=== PATIENT | male | born 1975 | race Caucasian/White ===

== ENCOUNTER 2020-09-24 17:06 | Inpatient (IN) | payer OTHER ==
[~2020-09-24] VITALS: Ht 175.3 cm; Wt 69.3 kg
[2020-09-24 18:14] LABS: BASOPHILS ABSOLUTE AUTO 0.03 K/mm3 (0.00-0.23); BASOPHILS PERCENT AUTO 0 % (0-2); EOSINOPHILS ABSOLUTE AUTO 0.02 K/mm3 (0.00-0.68); EOSINOPHILS PERCENT AUTO 0 % (0-6); Hemoglobin 14.8 g/dL (13.5-17.5); IMMATURE GRAN ABSOLUTE AUTO 0.02 K/mm3 (0.00-0.10); IMMATURE GRAN PERCENT AUTO 0 % (0-1); LYMPHOCYTES ABSOLUTE AUTO 0.99 K/mm3 (0.84-5.20); LYMPHOCYTES PERCENT AUTO 10 % (21-46); MONOCYTES PERCENT AUTO 4 % (4-13); Mean Corpuscular HGB 30.1 pg (26.0-34.0); Mean Corpuscular HGB Conc 33.6 g/dL (31.5-36.5); Mean Corpuscular Volume 89 fL (80-100); Mean Platelet Volume 11.3 fL (9.1-12.4); NEUTROPHILS PERCENT AUTO 86 % (41-73); Platelet Count 126 K/mm3 (150-400); RDW Coefficient Variation 12.7 % (11.7-14.2); RDW Standard Deviation 41.6 fL (35.1-46.3); Red Blood Cell Count 4.92 M/mm3 (4.30-5.90); White Blood Cell Count 10.06 K/mm3 (4.00-11.30)
[2020-09-24] MEDS ORDERED: AMOX-CLAV 875-1 EAC3 PO (18:15)
[2020-09-24] MEDS ORDERED: INSDET100 SC ×2 (18:15)
[2020-09-24] MEDS ORDERED: FARXIGA5 MG ×2 (18:15)
[2020-09-24] MEDS ORDERED: GLUCOPHAGE1000 MG PO ×2 (18:16)
[2020-09-24] MEDS ORDERED: OMEP20ER PO ×2 (18:16)
[2020-09-24 18:38] LABS: Alanine Aminotransfer (ALT/SGP 18 U/L (12-78); Albumin/Globulin Ratio 0.9 (0.8-1.8); Alk Phos 92 U/L (50-136); Anion Gap 12 mmol/L (6-16); Aspartate Aminotrans (AST/SGOT 10 U/L (12-37); Bilirubin, Total 1.4 mg/dL (0.1-1.0); Blood Urea Nitrogen 17 mg/dL (8-24); Bun/Creatinine Ratio 24.7 (12.0-20.0); CO2, Blood 24 mmol/L (21-32); Calcium, Blood 9.6 mg/dL (8.5-10.1); Chloride, Blood 98 mmol/L (98-108); Creatinine, Blood 0.69 mg/dL (0.60-1.20); Globulin, Blood 4.6 g/dL (2.2-4.0); Glomerular Filtration Rate >60 (60-); Glucose, Blood 329 mg/dL (70-99); Potassium, Blood 4.1 mmol/L (3.5-5.5); Sodium, Blood 134 mmol/L (136-145); Total Protein, Blood 8.6 g/dL (6.4-8.2)
[2020-09-24 20:09] LABS: Influenza A, PCR Negative (NEGATIVE); Influenza B, PCR Negative (NEGATIVE); Resp Syncytial Virus, PCR Negative (NEGATIVE); SARS-Cov-2 (COVID-19) PCR, MMC Negative (NEGATIVE)
--- NOTE | 2020-09-25 03:13 | NUR ---
CALL TO HOSPITALIST DR. ARNETT. PT BP 96/59. DOWN FROM 130S SBP ON ADMISSION. PULSE 84. AFEB. RECEIVED ORDER FOR 1 L NS OVER TO BE INFUSED OVER 3 HOURS.
--- NOTE | 2020-09-25 06:44 | NUR ---
SHIFT SUMMARY: PT ADMITTED TO MEDICAL FLOOR FROM ER [facility]. T/F FROM W/C TO BED INDEPENDENTLY. NWB LLE DUE TO PAIN. PT AAOX3. BP UP TO 125/81 AFTER 1L OF NS. L FOOT WOUND W/SLOUGH TO BED, MOD AMT OF SERO SANG MALODOROUS DRAINAGE, MACERATED EDGES. ERYTHEMA TO L FOOT. RED AREA OUTLINED. CAP REFILL < 3 SEC TO B LE. PT MED X 1 FOR L FOOT PAIN. IV ABT INFUSED PER ORDER. WILL CONT TO MONITOR
[2020-09-25 10:08] LABS: Anion Gap 3 mmol/L (6-16); Blood Urea Nitrogen 18 mg/dL (8-24); Bun/Creatinine Ratio 29.6 (12.0-20.0); CO2, Blood 27 mmol/L (21-32); Calcium, Blood 8.2 mg/dL (8.5-10.1); Chloride, Blood 109 mmol/L (98-108); Creatinine, Blood 0.61 mg/dL (0.60-1.20); Glomerular Filtration Rate >60 (60-); Glucose, Blood 344 mg/dL (70-99); Potassium, Blood 3.8 mmol/L (3.5-5.5); Sodium, Blood 139 mmol/L (136-145)
--- NOTE | 2020-09-25 15:37 | NUR ---
SHIFT SUMMARY PT IS A/O X 4 WITH C/O PAIN TO THE DIABETIC ULCER ON THE BOTTOM OF HIS LEFT FOOT. DR SALGADO SAW HIM THIS MORNING ALONG WITH DR ABARCA AND THEY ORDERED PO DIALUDID WHICH THE PT REPORTS TO BE MORE EFFECTIVE. PT IS GENERALLY UNPLEASANT AND REPORTS THAT HE IS "IRRITABLE BECAUSE OF HIS FOOT" DR ABARCA REPORTS THAT DR CHAUHAN WILL COME LOOK AT THE WOUND ON SATURDAY. HIS MED LIST WAS REQUESTED FROM HIS PHARMACY ON FILE. S.O. HAS BEEN AT THE BEDSIDE ON AND OFF TODAY. IV ABO HAVE INFUSED ORDERED WITH NO ISSUE. PT CBGS HAVE BEEN ELEVATED AND COVERED WITH SLIDING SCALE ORDERED, DR ABARCA IS AWARE AND GAVE AN ORDER FOR A NUTRITION CONSULT TO DISCUSS HEALTHY DIABETIC FOOD CHOICES AND FOOD THAT CAN HELP IMPROVE WOUND HEALING. THE LEAVE MANAGER STOPPED BY AND REPORTED THAT SHE WILL MEET WITH THE PT TOMORROW. PT AMBULATES WITH A FWW TO THE TOILET. HE CALLS FOR HELP WHEN NEEDED.
--- NOTE | 2020-09-25 16:59 | NUR ---
PROVIDER CONSULT WAS ATTEMPTED TO BE CALLED IN BUT SINCE THERE IS NO PODIATRY HEAD SCHOOL CUSTODIAN THE ANSWERING SERVICE STATED THAT THEY WERE UNABLE TO TAKE THE CONSULT AND IT WOULD NEED TO BE HELD FOR TOMORROW. CHARGE NURSE NOTIFIED.
--- NOTE | 2020-09-26 05:18 | NUR ---
SHIFT SUMMARY NO ACUTE CHANGES TO REPORT THIS SHIFT. PT HAS RESTED MOST OF THE NIGHT, MEDICATED FOR LEFT FOOT PAIN WITH PO DILAUDID WITH AFFECT. DRESSING INTACT TO LEFT FOOT ULCER. MINIMAL DRAINAGE WITH FOUL ODOR. ULCER TO SOLE OF FOOT WITH REDNESS AND SWELLING EXTENDING TO THE TOP OF THE FOOT. AREA OF REDNESS OUTLINED WITH SHARPIE. PT STILL PENDING PODIATRY CONSULT AT THIS TIME. IV ANTIBIOTICS CONTINUED ORDERED. PT A/OX4, PLESANT AND COOPERATIVE WITH CARE. BED IN LOWEST POSITION, CALL LIGHT WITHIN REACH.
[2020-09-26 07:39] LABS: Hematocrit 32.3 % (37.0-53.0); Mean Corpuscular HGB 30.2 pg (26.0-34.0); Mean Corpuscular HGB Conc 34.1 g/dL (31.5-36.5); Mean Corpuscular Volume 89 fL (80-100); Mean Platelet Volume 11.2 fL (9.1-12.4); Platelet Count 100 K/mm3 (150-400); RDW Coefficient Variation 12.5 % (11.7-14.2); Red Blood Cell Count 3.64 M/mm3 (4.30-5.90); White Blood Cell Count 6.78 K/mm3 (4.00-11.30)
[2020-09-26 08:01] LABS: Anion Gap 5 mmol/L (6-16); Blood Urea Nitrogen 13 mg/dL (8-24); Bun/Creatinine Ratio 24.6 (12.0-20.0); CO2, Blood 26 mmol/L (21-32); Calcium, Blood 8.5 mg/dL (8.5-10.1); Chloride, Blood 110 mmol/L (98-108); Creatinine, Blood 0.53 mg/dL (0.60-1.20); Glomerular Filtration Rate >60 (60-); Glucose, Blood 178 mg/dL (70-99); Potassium, Blood 3.4 mmol/L (3.5-5.5); Sodium, Blood 141 mmol/L (136-145)
--- NOTE | 2020-09-26 18:36 | NUR ---
SHIFT SUMMARY PT AWAKE DURING SHIFT REPORT THIS AM. RESTING QUIETLY. NO C/O. PT WAITING FOR PODIATRY CONSULT R/T DIABETIC FOOT ULCER. DR ABARCA IN TO SEE PT AND CONFIRM CONSULT; DR CHAUHAN IN TO SEE PT LATER IN AM. PT MADE NPO AFTER BREAKFAST FOR PROCEDURE THIS EVENING. PT CURRENTLY IN PROCEDURE FOR I&D ON L FOOT ULCER. L FOOT VERY SWOLLEN AND RED. MEPILEX ON ULCER. PT MEDICATED FOR PAIN PER EMAR. IV TORADOL GIVEN PER EMAR THIS AFTERNOON. CARE MANAGEMENT AND THERMAL TECHNICIAN BOTH IN TO SEE PT TODAY AND ATTEMPTED EDU PT IS NONCOMPLIANT WITH CARE AND DIABETIC MEDS. PT CAN BE VERY IRRITABLE AND RUDE TO STAFF WHO ARE JUST TRYING TO ASSIST HIM. DAY SX HERE TO GET PT JUST AFTER 1630. PT STILL IN PROCEDURE. WILL REPORT TO ONCOMING RN.
--- NOTE | 2020-09-26 19:15 | NUR ---
ASSUMED CARE RECEIVED REPORT FROM LUZ SOLORIO. PT RETURNED TO FLOOR FROM PACU, APPEARS DROWSY, BUT RESPONSIVE TO STAFF. VSS. DENIES PAIN AT THIS TIME. PT SITUATED IN ROOM, BED ALARM ON FOR SAFETY. PT DENIES NEEDS AT THIS TIME. CALL LIGHT, POSSESSIONS IN REACH. WCTM.
--- NOTE | 2020-09-26 19:18 | NUR ---
PT RETURNED TO FROM PACU. VSS; SEE CHART. RECEIVED REPORT FROM CAROLYNE ESCOBAR. PT ABLE TO TX WITH STAND AND PIVOT, 1P ASSIST. RESTING QUIETLY AT THIS TIME.
--- NOTE | 2020-09-26 20:20 | NUR ---
PT CBG 141, GLUCOMETER NOT TRANSFERRING READING TO [place].
--- NOTE | 2020-09-27 04:23 | NUR ---
SHIFT SUMMARY PT ASLEEP, NO S/S ACUTE DISTRESS NOTED. NO ACUTE CHANGES IN CONDITION SINCE ARRIVAL FROM PACU. POST-OP VS STABLE. WAS MONITORED EVERY 1-2 HOURS WITH NEEDS MET. NO C/O PAIN. RESPS E/U. DENIES NEEDS. CALL LIGHT, POSSESSIONS IN REACH, BED IN LOW POSITION WITH ALARMS ON. WCTM, REPORT TO ONCOMING RN.
[2020-09-27 06:07] LABS: Hematocrit 36.9 % (37.0-53.0); Hemoglobin 12.4 g/dL (13.5-17.5); Mean Corpuscular HGB 29.4 pg (26.0-34.0); Mean Corpuscular HGB Conc 33.6 g/dL (31.5-36.5); Mean Corpuscular Volume 87 fL (80-100); Platelet Count 110 K/mm3 (150-400); RDW Coefficient Variation 12.4 % (11.7-14.2); RDW Standard Deviation 39.7 fL (35.1-46.3); Red Blood Cell Count 4.22 M/mm3 (4.30-5.90); White Blood Cell Count 6.59 K/mm3 (4.00-11.30)
[2020-09-27 06:35] LABS: BASOPHILS ABSOLUTE AUTO 0.01 K/mm3 (0.00-0.23); BASOPHILS PERCENT AUTO 0 % (0-2); EOSINOPHILS PERCENT AUTO 0 % (0-6); Hematocrit 36.3 % (37.0-53.0); Hemoglobin 12.4 g/dL (13.5-17.5); IMMATURE GRAN ABSOLUTE AUTO 0.04 K/mm3 (0.00-0.10); IMMATURE GRAN PERCENT AUTO 1 % (0-1); LYMPHOCYTES ABSOLUTE AUTO 0.93 K/mm3 (0.84-5.20); LYMPHOCYTES PERCENT AUTO 14 % (21-46); MONOCYTES ABSOLUTE AUTO 0.31 K/mm3 (0.16-1.47); MONOCYTES PERCENT AUTO 5 % (4-13); Mean Corpuscular HGB 30.2 pg (26.0-34.0); Mean Corpuscular HGB Conc 34.2 g/dL (31.5-36.5); Mean Corpuscular Volume 88 fL (80-100); Mean Platelet Volume 11.5 fL (9.1-12.4); NEUTROPHILS ABSOLUTE AUTO 5.39 K/mm3 (1.96-9.15); NEUTROPHILS PERCENT AUTO 81 % (41-73); Platelet Count 109 K/mm3 (150-400); RDW Coefficient Variation 12.3 % (11.7-14.2); RDW Standard Deviation 40.2 fL (35.1-46.3); Red Blood Cell Count 4.11 M/mm3 (4.30-5.90); White Blood Cell Count 6.68 K/mm3 (4.00-11.30)
--- NOTE | 2020-09-27 17:26 | NUR ---
SHIFT SUMMARY PT DOING MUCH BETTER THIS AM, AFTER SX I&D LAST NIGHT. VSS. DRSG TO L FOOT C/D/I ALL DAY. LLE SWELLING AND REDNESS DECREASED FROM YESTERDAY WELL. DR ABARCA IN TO SEE PT THIS AM, ASSESSED FOOT AND DRSG, BUT DID NOT REMOVE. DR SALGADO LATER IN TO SEE PT, REMOVING DRSG TO ASSESS FOOT, BUT DID NOT REMOVE XEROFORM OR PACKING. ABD PAD AND KERLEX REPLACED AND WRAPPED WITH ISABELA WRAP BEFORE. DR CHAUHAN IN THIS EVENING TO SEE PT, ASSESS FOOT, AND CHANGE DRSG. XEROFORM AND PACKING REMOVED. DR CHAUHAN PLEASED WITH PROGRESS OF WOUND. WILL RETURN TOMORROW TO REASSESS WOUND AND PLACE ORDERS FOR PT WHEN D/C TO HOME. PT TO TAKE ABX AND GO TO WOUND CLINIC FOR DRSG CHANGES AFTER D/C. PT MEDICATED FOR PAIN AFTER DR CHAUHAN REMOVED PACKING. EATING DINNER AND VISITING WITH . PT REPORTED NO BM FOR SEVERAL DAYS. BOWEL CARE TO BE GIVEN AGAIN TONIGHT. CALL LT IN REACH.
--- NOTE | 2020-09-28 04:58 | NUR ---
SHAREPOINT MANAGER SUMMARY NO ACUTE CHANGES THIS SHIFT. PT AAOX4 AND PLEASANT. NON WEIGHT BEARING ON L FOOT. DRESSING CHANGED BY DR CHAUHAN ON DAY SHIFT AND DRESSING REMAINS C/D/I. PT CONTINUES ON IV ABX. MEDICATED FOR PAIN WITH PO DILAUDID X1 AND IV TORADOL X1 WITH GOOD EFFECT. PT DID HAVE FIRST BM IN SEVERAL DAYS. VSS, WILL CONTINUE TO MONITOR.
[2020-09-28 07:04] LABS: BASOPHILS ABSOLUTE AUTO 0.01 K/mm3 (0.00-0.23); BASOPHILS PERCENT AUTO 0 % (0-2); EOSINOPHILS ABSOLUTE AUTO 0.09 K/mm3 (0.00-0.68); EOSINOPHILS PERCENT AUTO 2 % (0-6); Hematocrit 32.7 % (37.0-53.0); Hemoglobin 10.9 g/dL (13.5-17.5); IMMATURE GRAN ABSOLUTE AUTO 0.01 K/mm3 (0.00-0.10); IMMATURE GRAN PERCENT AUTO 0 % (0-1); LYMPHOCYTES ABSOLUTE AUTO 1.64 K/mm3 (0.84-5.20); LYMPHOCYTES PERCENT AUTO 31 % (21-46); MONOCYTES ABSOLUTE AUTO 0.28 K/mm3 (0.16-1.47); MONOCYTES PERCENT AUTO 5 % (4-13); Mean Corpuscular HGB 29.9 pg (26.0-34.0); Mean Corpuscular HGB Conc 33.3 g/dL (31.5-36.5); Mean Corpuscular Volume 90 fL (80-100); NEUTROPHILS ABSOLUTE AUTO 3.23 K/mm3 (1.96-9.15); NEUTROPHILS PERCENT AUTO 61 % (41-73); Platelet Count 112 K/mm3 (150-400); RDW Coefficient Variation 12.6 % (11.7-14.2); RDW Standard Deviation 41.4 fL (35.1-46.3); Red Blood Cell Count 3.64 M/mm3 (4.30-5.90); White Blood Cell Count 5.26 K/mm3 (4.00-11.30)
[2020-09-28] MEDS ORDERED: CEPH500 PO ×2 (16:52)
--- NOTE | 2020-09-28 17:38 | NUR ---
DISCHARGE SUMMARY PT A/O X4 AND COOPERATIVE W/CARE. DR. CHAUHAN PERFORMED A DRESSING CHANGE AND INSTRUCTED THE PT ON FOLLOW UP. HARD PRESCRIPTIONS FOR CRUTCHES AND CBG EQUIPMENT GIVEN TO THE PATIENT. PRESCRIPTIONS FAXED TO PT PHARMACY OF CHOICE. VSS; PT DISCHARGED HOME WITH .
[2020-09-29 11:09] LABS: HEPARIN INDUCED PLATELET AB 0.054 OD (0.000-0.400)
== END 2020-09-28 17:38 | disposition home or self-care (01) | DRG 854 ==
LOC: ER 17:06 → PCU 17:07 → MEDS 17:07 → ER 17:07 → MEDS 23:10
PROVIDERS: Emergency Medicine; Family Medicine; Internal Medicine; Physician Assistant; Podiatrist Foot & Ankle Surgery; ADMIT Hospitalist
PROC: 0Y9N0ZZ Drainage of Left Foot, Open Approach (ICD-10-PCS; 2020-09-26)
PROC: 0JBR0ZZ Excision of Left Foot Subcutaneous Tissue and Fascia, Open Approach (ICD-10-PCS; principal; 2020-09-26 17:30)
DX: A41.9 Sepsis, unspecified organism (principal); L03.115 Cellulitis of right lower limb; E87.1 Hypo-osmolality and hyponatremia; L02.612 Cutaneous abscess of left foot; D69.6 Thrombocytopenia, unspecified; E11.621 Type 2 diabetes mellitus with foot ulcer; L97.529 Non-pressure chronic ulcer of other part of left foot with unspecified severity; K21.9 Gastro-esophageal reflux disease without esophagitis; Z20.828 Contact with and (suspected) exposure to other viral communicable diseases; I95.89 Other hypotension; E78.5 Hyperlipidemia, unspecified; E11.40 Type 2 diabetes mellitus with diabetic neuropathy, unspecified; Z79.4 Long term (current) use of insulin; Z87.891 Personal history of nicotine dependence
CPT/HCPCS: 0241U; 36415; 73701; 80048; 80053; 82947; 83605; 84145; 85025; 85027; 85651; 86022; 86140; 87040; 87070; 87075; 87205; 93005; 93010; 93922; 99285-25; A9270; A9270-GY; J0171; J0690; J1100; J1170; J1650; J1885; J2250; J2370; J2405; J2704; J3010; J3370; J7030; J7050; Q9967

== ENCOUNTER → 2020-10-13 | Outpatient (CLI) | payer OTHER ==
[~2020-10-13] MED LIST: AMOX-CLAV 875-1 EAC3 PO; CEFTRIAXONE IV; CEPH500 PO; DULO30 PO; FARXIGA5 MG; GEMF600 PO; GLIMEPIRIDE2 M2 PO; GLUCOPHAGE1000 MG PO; HYDR1TAB94 PO; IBUP800 PO; INSDET100 SC; OMEP20ER PO; PREGABALIN100 MG PO; Pravachol40 MG PO; TRAM50 PO
== END ==
LOC: LAB 16:08
DX: L02.612 Cutaneous abscess of left foot (principal)
CPT/HCPCS: 87070; 87075; 87205

== ENCOUNTER 2020-10-14 00:59 | Day surgery (SDC) | payer OTHER ==
[~2020-10-14 00:59] MED LIST changes: -CEFTRIAXONE IV; -DULO30 PO; -GEMF600 PO; -GLIMEPIRIDE2 M2 PO; -HYDR1TAB94 PO; -IBUP800 PO; -PREGABALIN100 MG PO; -Pravachol40 MG PO; -TRAM50 PO
== END 2020-10-14 23:15 | disposition home or self-care (01) ==
LOC: WOUND 00:59
DX: L89.893 Pressure ulcer of other site, stage 3 (principal); E11.40 Type 2 diabetes mellitus with diabetic neuropathy, unspecified; E11.621 Type 2 diabetes mellitus with foot ulcer; E11.59 Type 2 diabetes mellitus with other circulatory complications; Z87.891 Personal history of nicotine dependence; Z79.4 Long term (current) use of insulin; Z79.899 Other long term (current) drug therapy; L97.425 Non-pressure chronic ulcer of left heel and midfoot with muscle involvement without evidence of necrosis
CPT/HCPCS: G0463

== ENCOUNTER 2020-10-21 00:40 | Day surgery (SDC) | payer OTHER | END 2020-10-21 23:36 | disposition home or self-care (01) | LOC: WOUND 00:40 | DX: L89.893 Pressure ulcer of other site, stage 3 (principal); E11.40 Type 2 diabetes mellitus with diabetic neuropathy, unspecified; E11.621 Type 2 diabetes mellitus with foot ulcer; E11.59 Type 2 diabetes mellitus with other circulatory complications; L97.425 Non-pressure chronic ulcer of left heel and midfoot with muscle involvement without evidence of necrosis; Z79.4 Long term (current) use of insulin | CPT/HCPCS: G0463 ==

== ENCOUNTER 2020-10-26 06:39 | Day surgery (SDC) | payer OTHER | END 2020-10-26 22:51 | disposition home or self-care (01) | LOC: WOUND 06:39 | DX: E11.621 Type 2 diabetes mellitus with foot ulcer (principal); L97.422 Non-pressure chronic ulcer of left heel and midfoot with fat layer exposed; E11.52 Type 2 diabetes mellitus with diabetic peripheral angiopathy with gangrene; I96 Gangrene, not elsewhere classified; L89.893 Pressure ulcer of other site, stage 3; E11.59 Type 2 diabetes mellitus with other circulatory complications; G47.30 Sleep apnea, unspecified; Z79.4 Long term (current) use of insulin; Z79.899 Other long term (current) drug therapy; Z20.828 Contact with and (suspected) exposure to other viral communicable diseases ==

== ENCOUNTER 2020-11-02 01:27 | Day surgery (SDC) | payer OTHER | END 2020-11-02 23:14 | disposition home or self-care (01) | LOC: WOUND 01:27 | DX: E11.621 Type 2 diabetes mellitus with foot ulcer (principal); L97.422 Non-pressure chronic ulcer of left heel and midfoot with fat layer exposed; E11.52 Type 2 diabetes mellitus with diabetic peripheral angiopathy with gangrene; I96 Gangrene, not elsewhere classified; L89.893 Pressure ulcer of other site, stage 3; G47.30 Sleep apnea, unspecified; E11.59 Type 2 diabetes mellitus with other circulatory complications; E11.40 Type 2 diabetes mellitus with diabetic neuropathy, unspecified; Z79.4 Long term (current) use of insulin; Z79.899 Other long term (current) drug therapy; Z20.828 Contact with and (suspected) exposure to other viral communicable diseases | CPT/HCPCS: G0463 ==

== ENCOUNTER 2020-11-10 00:27 | Day surgery (SDC) | payer OTHER | END 2020-11-10 23:35 | disposition home or self-care (01) | LOC: WOUND 00:27 | DX: E11.621 Type 2 diabetes mellitus with foot ulcer (principal); L97.423 Non-pressure chronic ulcer of left heel and midfoot with necrosis of muscle; E11.52 Type 2 diabetes mellitus with diabetic peripheral angiopathy with gangrene; I96 Gangrene, not elsewhere classified; E11.40 Type 2 diabetes mellitus with diabetic neuropathy, unspecified; G47.30 Sleep apnea, unspecified; E11.59 Type 2 diabetes mellitus with other circulatory complications; Z79.4 Long term (current) use of insulin; Z79.899 Other long term (current) drug therapy; Z20.822 Contact with and (suspected) exposure to COVID-19 | CPT/HCPCS: A9270; G0463 ==

== ENCOUNTER 2020-11-17 00:19 | Day surgery (SDC) | payer OTHER | END 2020-11-17 23:59 | disposition home or self-care (01) | LOC: WOUND 00:19 | DX: E11.621 Type 2 diabetes mellitus with foot ulcer (principal); L97.422 Non-pressure chronic ulcer of left heel and midfoot with fat layer exposed; L03.116 Cellulitis of left lower limb; E11.40 Type 2 diabetes mellitus with diabetic neuropathy, unspecified; E11.59 Type 2 diabetes mellitus with other circulatory complications; Z79.4 Long term (current) use of insulin | CPT/HCPCS: 87070; 87075; 87076; 87185; 87205; A9270 ==

== ENCOUNTER 2020-11-21 12:04 | Day surgery (SDC) | payer OTHER ==
[2020-11-21] MEDS ORDERED: GEMF600 PO (14:25)
[2020-11-21] MEDS ORDERED: Pravachol40 MG PO (14:25)
[2020-11-21] MEDS ORDERED: TRAM50 PO (14:26)
[2020-11-22] MEDS ORDERED: CEFTRIAXONE IV (16:40)
== END 2020-11-21 14:38 | disposition home or self-care (01) ==
LOC: ATC 12:04
DX: M86.172 Other acute osteomyelitis, left ankle and foot (principal); L03.116 Cellulitis of left lower limb; E11.621 Type 2 diabetes mellitus with foot ulcer; E11.40 Type 2 diabetes mellitus with diabetic neuropathy, unspecified; E11.59 Type 2 diabetes mellitus with other circulatory complications
CPT/HCPCS: 96365; J0696

== ENCOUNTER 2020-11-22 07:07 | Day surgery (SDC) | payer OTHER ==
[~2020-11-22 07:07] MED LIST changes: +GEMF600 PO; +Pravachol40 MG PO; +TRAM50 PO
[2020-11-22] MEDS ORDERED: CEFTRIAXONE IV (16:40)
--- NOTE | 2020-11-22 16:45 | NUR ---
UNABLE TO PLACE PICC LINE D/T TOUGH SKIN. Romain OLIVEROS RN CAME IN AND PLACED A POWER-GLIDE IN [facility].
== END 2020-11-22 16:22 | disposition home or self-care (01) ==
LOC: ATC 07:07
DX: E11.69 Type 2 diabetes mellitus with other specified complication (principal); M86.8X7 Other osteomyelitis, ankle and foot; E11.628 Type 2 diabetes mellitus with other skin complications; L03.116 Cellulitis of left lower limb; E11.621 Type 2 diabetes mellitus with foot ulcer; L97.423 Non-pressure chronic ulcer of left heel and midfoot with necrosis of muscle; E11.52 Type 2 diabetes mellitus with diabetic peripheral angiopathy with gangrene; I96 Gangrene, not elsewhere classified; E11.40 Type 2 diabetes mellitus with diabetic neuropathy, unspecified; E11.59 Type 2 diabetes mellitus with other circulatory complications; Z79.2 Long term (current) use of antibiotics; Z79.899 Other long term (current) drug therapy; Z79.4 Long term (current) use of insulin; Z20.822 Contact with and (suspected) exposure to COVID-19; G47.30 Sleep apnea, unspecified
CPT/HCPCS: 96365; C1751; J0696

== ENCOUNTER 2020-11-23 00:37 | Day surgery (SDC) | payer OTHER ==
[~2020-11-23 00:37] MED LIST changes: +CEFTRIAXONE IV
== END 2020-11-23 15:38 | disposition home or self-care (01) ==
LOC: ATC 00:37
DX: E11.69 Type 2 diabetes mellitus with other specified complication (principal); M86.8X7 Other osteomyelitis, ankle and foot; E11.628 Type 2 diabetes mellitus with other skin complications; L03.116 Cellulitis of left lower limb; E11.621 Type 2 diabetes mellitus with foot ulcer; L97.423 Non-pressure chronic ulcer of left heel and midfoot with necrosis of muscle; E11.40 Type 2 diabetes mellitus with diabetic neuropathy, unspecified; E11.59 Type 2 diabetes mellitus with other circulatory complications; E11.52 Type 2 diabetes mellitus with diabetic peripheral angiopathy with gangrene; I96 Gangrene, not elsewhere classified; G47.30 Sleep apnea, unspecified; Z79.2 Long term (current) use of antibiotics; Z79.4 Long term (current) use of insulin; Z79.899 Other long term (current) drug therapy; Z20.822 Contact with and (suspected) exposure to COVID-19
CPT/HCPCS: 96365; J0696

== ENCOUNTER 2020-11-24 01:28 | Day surgery (SDC) | payer OTHER | END 2020-11-24 11:36 | disposition home or self-care (01) | LOC: ATC 01:28 | DX: E11.69 Type 2 diabetes mellitus with other specified complication (principal); M86.8X7 Other osteomyelitis, ankle and foot; E11.628 Type 2 diabetes mellitus with other skin complications; L03.116 Cellulitis of left lower limb; E11.621 Type 2 diabetes mellitus with foot ulcer; L97.423 Non-pressure chronic ulcer of left heel and midfoot with necrosis of muscle; E11.40 Type 2 diabetes mellitus with diabetic neuropathy, unspecified; E11.59 Type 2 diabetes mellitus with other circulatory complications; E11.52 Type 2 diabetes mellitus with diabetic peripheral angiopathy with gangrene; I96 Gangrene, not elsewhere classified; G47.30 Sleep apnea, unspecified; Z79.2 Long term (current) use of antibiotics; Z79.4 Long term (current) use of insulin; Z79.899 Other long term (current) drug therapy; Z20.822 Contact with and (suspected) exposure to COVID-19 | CPT/HCPCS: 96365; J0696 ==

== ENCOUNTER 2020-11-24 01:37 | Day surgery (SDC) | payer OTHER | END 2020-11-24 22:42 | disposition home or self-care (01) | LOC: WOUND 01:37 | DX: E11.621 Type 2 diabetes mellitus with foot ulcer (principal); L97.422 Non-pressure chronic ulcer of left heel and midfoot with fat layer exposed; M86.172 Other acute osteomyelitis, left ankle and foot; L03.116 Cellulitis of left lower limb; E11.40 Type 2 diabetes mellitus with diabetic neuropathy, unspecified; Z79.4 Long term (current) use of insulin; Z79.899 Other long term (current) drug therapy; Z79.2 Long term (current) use of antibiotics; Z20.822 Contact with and (suspected) exposure to COVID-19 | CPT/HCPCS: A9270; G0463 ==

== ENCOUNTER 2020-11-25 00:25 | Day surgery (SDC) | payer OTHER ==
--- NOTE | 2020-11-25 11:57 | NUR ---
LAB ORDER REC'D FROM DR. CHAUHAN'S OFFICE. CREATININE DRAWN, POWERGLIDE NOT DRAWING BACK, PERIPHERAL DRAW DONE WITH BUTTERFLY 23 GAUGE TO LAC.
== END 2020-11-25 11:40 | disposition home or self-care (01) ==
LOC: ATC 00:25
DX: E11.621 Type 2 diabetes mellitus with foot ulcer (principal); L97.422 Non-pressure chronic ulcer of left heel and midfoot with fat layer exposed; E11.65 Type 2 diabetes mellitus with hyperglycemia; L03.116 Cellulitis of left lower limb; E11.40 Type 2 diabetes mellitus with diabetic neuropathy, unspecified; E11.51 Type 2 diabetes mellitus with diabetic peripheral angiopathy without gangrene; G47.30 Sleep apnea, unspecified; M86.172 Other acute osteomyelitis, left ankle and foot
CPT/HCPCS: 82565; 96365; J0696

== ENCOUNTER 2020-11-26 01:22 | Day surgery (SDC) | payer OTHER | END 2020-11-26 10:58 | disposition home or self-care (01) | LOC: ATC 01:22 | DX: M86.172 Other acute osteomyelitis, left ankle and foot (principal); L03.116 Cellulitis of left lower limb; E11.621 Type 2 diabetes mellitus with foot ulcer; E11.65 Type 2 diabetes mellitus with hyperglycemia; E11.40 Type 2 diabetes mellitus with diabetic neuropathy, unspecified; E11.51 Type 2 diabetes mellitus with diabetic peripheral angiopathy without gangrene; E11.59 Type 2 diabetes mellitus with other circulatory complications; L97.525 Non-pressure chronic ulcer of other part of left foot with muscle involvement without evidence of necrosis; G47.30 Sleep apnea, unspecified | CPT/HCPCS: 96365; J0696 ==

== ENCOUNTER 2020-11-27 00:19 | Day surgery (SDC) | payer OTHER | END 2020-11-27 11:00 | disposition home or self-care (01) | LOC: ATC 00:19 | DX: L03.116 Cellulitis of left lower limb (principal); E11.69 Type 2 diabetes mellitus with other specified complication; M86.172 Other acute osteomyelitis, left ankle and foot; E11.621 Type 2 diabetes mellitus with foot ulcer; L97.522 Non-pressure chronic ulcer of other part of left foot with fat layer exposed; E11.40 Type 2 diabetes mellitus with diabetic neuropathy, unspecified | CPT/HCPCS: 96365; J0696 ==

== ENCOUNTER 2020-11-28 00:15 | Day surgery (SDC) | payer OTHER | END 2020-11-28 08:49 | disposition home or self-care (01) | LOC: ATC 00:15 | DX: M86.172 Other acute osteomyelitis, left ankle and foot (principal); L03.116 Cellulitis of left lower limb; E11.621 Type 2 diabetes mellitus with foot ulcer; L97.525 Non-pressure chronic ulcer of other part of left foot with muscle involvement without evidence of necrosis; E11.40 Type 2 diabetes mellitus with diabetic neuropathy, unspecified; E11.59 Type 2 diabetes mellitus with other circulatory complications; E11.65 Type 2 diabetes mellitus with hyperglycemia; G47.30 Sleep apnea, unspecified; I73.9 Peripheral vascular disease, unspecified | CPT/HCPCS: 36415; 80053; 80061; 84443; 85025; 96365; J0696 ==

== ENCOUNTER 2020-11-29 00:18 | Day surgery (SDC) | payer OTHER | END 2020-11-29 11:10 | disposition home or self-care (01) | LOC: ATC 00:18 | DX: E11.69 Type 2 diabetes mellitus with other specified complication (principal); M86.172 Other acute osteomyelitis, left ankle and foot; E11.621 Type 2 diabetes mellitus with foot ulcer; L97.525 Non-pressure chronic ulcer of other part of left foot with muscle involvement without evidence of necrosis; L03.116 Cellulitis of left lower limb; E11.40 Type 2 diabetes mellitus with diabetic neuropathy, unspecified | CPT/HCPCS: 96365; J0696 ==

== ENCOUNTER 2020-11-30 00:06 | Day surgery (SDC) | payer OTHER | END 2020-11-30 09:28 | disposition home or self-care (01) | LOC: ATC 00:06 | DX: M86.172 Other acute osteomyelitis, left ankle and foot (principal); L03.116 Cellulitis of left lower limb; E11.621 Type 2 diabetes mellitus with foot ulcer; L97.525 Non-pressure chronic ulcer of other part of left foot with muscle involvement without evidence of necrosis; E11.40 Type 2 diabetes mellitus with diabetic neuropathy, unspecified; E11.59 Type 2 diabetes mellitus with other circulatory complications; E11.65 Type 2 diabetes mellitus with hyperglycemia; G47.30 Sleep apnea, unspecified; I73.9 Peripheral vascular disease, unspecified | CPT/HCPCS: 96365; J0696 ==

== ENCOUNTER 2020-12-01 00:04 | Day surgery (SDC) | payer OTHER | END 2020-12-01 09:15 | disposition home or self-care (01) | LOC: ATC 00:04 | DX: M86.172 Other acute osteomyelitis, left ankle and foot (principal); L03.116 Cellulitis of left lower limb; E11.621 Type 2 diabetes mellitus with foot ulcer; E11.40 Type 2 diabetes mellitus with diabetic neuropathy, unspecified; E11.59 Type 2 diabetes mellitus with other circulatory complications | CPT/HCPCS: 96365; J0696 ==

== ENCOUNTER 2020-12-01 00:23 | Day surgery (SDC) | payer OTHER | END 2020-12-01 23:34 | disposition home or self-care (01) | LOC: WOUND 00:23 | DX: E11.621 Type 2 diabetes mellitus with foot ulcer (principal); L97.425 Non-pressure chronic ulcer of left heel and midfoot with muscle involvement without evidence of necrosis; L03.116 Cellulitis of left lower limb; E11.69 Type 2 diabetes mellitus with other specified complication; M86.172 Other acute osteomyelitis, left ankle and foot; E11.40 Type 2 diabetes mellitus with diabetic neuropathy, unspecified; E11.59 Type 2 diabetes mellitus with other circulatory complications; E11.65 Type 2 diabetes mellitus with hyperglycemia; Z79.4 Long term (current) use of insulin | CPT/HCPCS: A9270; G0463 ==

== ENCOUNTER 2020-12-02 00:07 | Day surgery (SDC) | payer OTHER | END 2020-12-02 09:10 | disposition home or self-care (01) | LOC: ATC 00:07 | DX: E11.69 Type 2 diabetes mellitus with other specified complication (principal); M86.172 Other acute osteomyelitis, left ankle and foot; E11.621 Type 2 diabetes mellitus with foot ulcer; L03.116 Cellulitis of left lower limb; E11.40 Type 2 diabetes mellitus with diabetic neuropathy, unspecified; Z79.4 Long term (current) use of insulin | CPT/HCPCS: 96365; J0696 ==

== ENCOUNTER 2020-12-03 03:43 | Day surgery (SDC) | payer OTHER | END 2020-12-03 09:28 | disposition home or self-care (01) | LOC: ATC 03:43 | DX: M86.172 Other acute osteomyelitis, left ankle and foot (principal); L03.116 Cellulitis of left lower limb; E11.621 Type 2 diabetes mellitus with foot ulcer; E11.40 Type 2 diabetes mellitus with diabetic neuropathy, unspecified; E11.59 Type 2 diabetes mellitus with other circulatory complications | CPT/HCPCS: 96365; J0696 ==

== ENCOUNTER 2020-12-04 02:21 | Day surgery (SDC) | payer OTHER | END 2020-12-04 09:45 | disposition home or self-care (01) | LOC: ATC 02:21 | DX: M86.172 Other acute osteomyelitis, left ankle and foot (principal); L03.116 Cellulitis of left lower limb; E11.621 Type 2 diabetes mellitus with foot ulcer; L97.425 Non-pressure chronic ulcer of left heel and midfoot with muscle involvement without evidence of necrosis; E11.59 Type 2 diabetes mellitus with other circulatory complications; E11.40 Type 2 diabetes mellitus with diabetic neuropathy, unspecified; E11.65 Type 2 diabetes mellitus with hyperglycemia; G47.30 Sleep apnea, unspecified; I73.9 Peripheral vascular disease, unspecified | CPT/HCPCS: 96365; J0696 ==

== ENCOUNTER 2020-12-05 00:20 | Day surgery (SDC) | payer OTHER | END 2020-12-05 09:35 | disposition home or self-care (01) | LOC: ATC 00:20 | DX: E11.621 Type 2 diabetes mellitus with foot ulcer (principal); L97.422 Non-pressure chronic ulcer of left heel and midfoot with fat layer exposed; E11.69 Type 2 diabetes mellitus with other specified complication; M86.172 Other acute osteomyelitis, left ankle and foot; L03.116 Cellulitis of left lower limb; E11.40 Type 2 diabetes mellitus with diabetic neuropathy, unspecified; E11.51 Type 2 diabetes mellitus with diabetic peripheral angiopathy without gangrene | CPT/HCPCS: 96365; J0696 ==

== ENCOUNTER 2020-12-06 09:10 | Day surgery (SDC) | payer OTHER ==
[~2020-12-06] VITALS: Ht 175.3 cm; Wt 72.7 kg
--- NOTE | 2020-12-06 10:16 | NUR ---
12/06/20 Sabina Rubio CALL LIGHT WITHIN REACH. PATIENT CAME IN WITH POWER GLIDE IV ON THE RIGHT UPPER ARM. SITE IS PATENT AND DR. WHITE IS OK TO USE POWER GLIDE FOR TODAY'S PROCEDURE.
--- NOTE | 2020-12-06 11:37 | NUR ---
12/06/20 1137 Rudi Bey 0.15MG EPINEPHRINE ADDED TO 30ML'S 0.5% BUPIVACAINE PL TO ACHIEVE SOLUTION OF 0.5% BUPIVACAINE WITH EPI 1:200,000.
--- NOTE | 2020-12-06 12:55 | NUR ---
12/06/20 1255 Destini Salazar FLUIDS DISCONNECTED FROM POWER GLIDE LINE, FLUSHED WITH 10ML NORMAL SALINE.
== END 2020-12-06 13:01 | disposition home or self-care (01) ==
LOC: ORSCSDS 09:10
PROVIDERS: Podiatrist Foot & Ankle Surgery
PROC: 0Y6N0ZD Detachment at Left Foot, Partial 4th Ray, Open Approach (ICD-10-PCS; principal; 2020-12-06 11:00)
PROC: 0Y6N0ZB Detachment at Left Foot, Partial 2nd Ray, Open Approach (ICD-10-PCS; principal; 2020-12-06 11:00)
PROC: 0Y6N0Z9 Detachment at Left Foot, Partial 1st Ray, Open Approach (ICD-10-PCS; principal; 2020-12-06 11:00)
PROC: 0Y6N0ZF Detachment at Left Foot, Partial 5th Ray, Open Approach (ICD-10-PCS; principal; 2020-12-06 11:00)
PROC: 0Y6N0ZC Detachment at Left Foot, Partial 3rd Ray, Open Approach (ICD-10-PCS; principal; 2020-12-06 11:00)
DX: L02.612 Cutaneous abscess of left foot (principal); M86.9 Osteomyelitis, unspecified; E11.9 Type 2 diabetes mellitus without complications; K21.9 Gastro-esophageal reflux disease without esophagitis; Z79.4 Long term (current) use of insulin; Z79.899 Other long term (current) drug therapy
CPT/HCPCS: 82947; 88307; 88311; 88312; J0171; J0690; J1100; J1885; J2405; J2704; J3010; J7030; J7120

== ENCOUNTER 2020-12-17 00:11 | Day surgery (SDC) | payer OTHER | END 2020-12-17 10:45 | disposition home or self-care (01) | LOC: ATC 00:11 | DX: E11.69 Type 2 diabetes mellitus with other specified complication (principal); M86.172 Other acute osteomyelitis, left ankle and foot; L02.612 Cutaneous abscess of left foot; K21.9 Gastro-esophageal reflux disease without esophagitis; Z87.891 Personal history of nicotine dependence; Z79.4 Long term (current) use of insulin | CPT/HCPCS: 96365; J0696 ==

== ENCOUNTER 2020-12-18 00:12 | Day surgery (SDC) | payer OTHER | END 2020-12-18 11:50 | disposition home or self-care (01) | LOC: ATC 00:12 | DX: E11.69 Type 2 diabetes mellitus with other specified complication (principal); M86.172 Other acute osteomyelitis, left ankle and foot; E11.42 Type 2 diabetes mellitus with diabetic polyneuropathy; K21.9 Gastro-esophageal reflux disease without esophagitis; Z79.4 Long term (current) use of insulin; Z87.891 Personal history of nicotine dependence | CPT/HCPCS: 96365; J0696 ==

== ENCOUNTER 2020-12-19 00:27 | Day surgery (SDC) | payer OTHER | END 2020-12-19 12:34 | disposition home or self-care (01) | LOC: ATC 00:27 | DX: M86.172 Other acute osteomyelitis, left ankle and foot (principal); L02.612 Cutaneous abscess of left foot; K21.9 Gastro-esophageal reflux disease without esophagitis; E08.42 Diabetes mellitus due to underlying condition with diabetic polyneuropathy; E08.69 Diabetes mellitus due to underlying condition with other specified complication; Z79.4 Long term (current) use of insulin; Z87.891 Personal history of nicotine dependence | CPT/HCPCS: 36569; 96365; C1751; J0696 ==

== ENCOUNTER 2020-12-20 01:03 | Day surgery (SDC) | payer OTHER | END 2020-12-20 10:53 | disposition home or self-care (01) | LOC: ATC 01:03 | DX: M86.172 Other acute osteomyelitis, left ankle and foot (principal); L02.612 Cutaneous abscess of left foot; E08.42 Diabetes mellitus due to underlying condition with diabetic polyneuropathy; K21.9 Gastro-esophageal reflux disease without esophagitis; Z87.891 Personal history of nicotine dependence; Z79.4 Long term (current) use of insulin; Z79.84 Long term (current) use of oral hypoglycemic drugs | CPT/HCPCS: 96365; J0696 ==

== ENCOUNTER 2020-12-21 00:11 | Day surgery (SDC) | payer OTHER | END 2020-12-21 10:52 | disposition home or self-care (01) | LOC: ATC 00:11 | DX: E11.69 Type 2 diabetes mellitus with other specified complication (principal); M86.172 Other acute osteomyelitis, left ankle and foot; E11.42 Type 2 diabetes mellitus with diabetic polyneuropathy; Z79.4 Long term (current) use of insulin; M86.9 Osteomyelitis, unspecified; K21.9 Gastro-esophageal reflux disease without esophagitis; D69.6 Thrombocytopenia, unspecified | CPT/HCPCS: 96365; J0696 ==

== ENCOUNTER 2020-12-22 00:08 | Day surgery (SDC) | payer OTHER | END 2020-12-22 10:58 | disposition home or self-care (01) | LOC: ATC 00:08 | DX: E11.69 Type 2 diabetes mellitus with other specified complication (principal); M86.172 Other acute osteomyelitis, left ankle and foot; E11.42 Type 2 diabetes mellitus with diabetic polyneuropathy; K21.9 Gastro-esophageal reflux disease without esophagitis; Z87.891 Personal history of nicotine dependence | CPT/HCPCS: 96365; J0696 ==

== ENCOUNTER 2020-12-23 00:54 | Day surgery (SDC) | payer OTHER ==
[2020-12-24] MEDS ORDERED: IBUP800 PO (10:33)
[2020-12-24] MEDS ORDERED: HYDR1TAB94 PO (10:33)
== END 2020-12-23 11:40 | disposition home or self-care (01) ==
LOC: ATC 00:54
DX: M86.172 Other acute osteomyelitis, left ankle and foot (principal); L02.612 Cutaneous abscess of left foot; E08.42 Diabetes mellitus due to underlying condition with diabetic polyneuropathy; Z79.4 Long term (current) use of insulin; Z87.891 Personal history of nicotine dependence
CPT/HCPCS: 96365; J0696

== ENCOUNTER 2020-12-24 01:19 | Day surgery (SDC) | payer OTHER ==
[2020-12-24] MEDS ORDERED: IBUP800 PO (10:33)
[2020-12-24] MEDS ORDERED: HYDR1TAB94 PO (10:33)
== END 2020-12-24 10:50 | disposition home or self-care (01) ==
LOC: ATC 01:19
DX: M86.172 Other acute osteomyelitis, left ankle and foot (principal); L02.612 Cutaneous abscess of left foot; E08.42 Diabetes mellitus due to underlying condition with diabetic polyneuropathy; Z79.4 Long term (current) use of insulin; Z87.891 Personal history of nicotine dependence
CPT/HCPCS: 96365; J0696

== ENCOUNTER 2020-12-25 00:37 | Day surgery (SDC) | payer OTHER ==
[~2020-12-25 00:37] MED LIST changes: +HYDR1TAB94 PO; +IBUP800 PO
== END 2020-12-25 11:00 | disposition home or self-care (01) ==
LOC: ATC 00:37
DX: E11.69 Type 2 diabetes mellitus with other specified complication (principal); M86.172 Other acute osteomyelitis, left ankle and foot; E11.42 Type 2 diabetes mellitus with diabetic polyneuropathy; D69.6 Thrombocytopenia, unspecified; K21.9 Gastro-esophageal reflux disease without esophagitis; Z79.4 Long term (current) use of insulin
CPT/HCPCS: 96365; J0696

== ENCOUNTER 2020-12-26 00:22 | Day surgery (SDC) | payer OTHER | END 2020-12-26 13:57 | disposition home or self-care (01) | LOC: ATC 00:22 | DX: E11.69 Type 2 diabetes mellitus with other specified complication (principal); M86.172 Other acute osteomyelitis, left ankle and foot; E11.42 Type 2 diabetes mellitus with diabetic polyneuropathy; L02.612 Cutaneous abscess of left foot; K21.9 Gastro-esophageal reflux disease without esophagitis; Z79.4 Long term (current) use of insulin; Z87.891 Personal history of nicotine dependence | CPT/HCPCS: 96365; J0696 ==

== ENCOUNTER 2020-12-27 00:29 | Day surgery (SDC) | payer OTHER ==
[2020-12-28] MEDS ORDERED: DULO30 PO (10:53)
== END 2020-12-27 11:01 | disposition home or self-care (01) ==
LOC: ATC 00:29
DX: M86.172 Other acute osteomyelitis, left ankle and foot (principal); L02.612 Cutaneous abscess of left foot; E08.42 Diabetes mellitus due to underlying condition with diabetic polyneuropathy; Z79.4 Long term (current) use of insulin; Z79.84 Long term (current) use of oral hypoglycemic drugs; Z87.891 Personal history of nicotine dependence
CPT/HCPCS: 96365; J0696

== ENCOUNTER 2020-12-28 00:15 | Day surgery (SDC) | payer OTHER ==
[2020-12-28] MEDS ORDERED: DULO30 PO (10:53)
== END 2020-12-28 10:50 | disposition home or self-care (01) ==
LOC: ATC 00:15
DX: E11.69 Type 2 diabetes mellitus with other specified complication (principal); M86.172 Other acute osteomyelitis, left ankle and foot; L02.612 Cutaneous abscess of left foot; K21.9 Gastro-esophageal reflux disease without esophagitis; Z79.4 Long term (current) use of insulin; Z87.891 Personal history of nicotine dependence; Z29.9 Encounter for prophylactic measures, unspecified
CPT/HCPCS: 96365; J0696

== ENCOUNTER 2020-12-29 00:08 | Day surgery (SDC) | payer OTHER ==
[~2020-12-29 00:08] MED LIST changes: +DULO30 PO
== END 2020-12-29 10:55 | disposition home or self-care (01) ==
LOC: ATC 00:08
DX: E08.69 Diabetes mellitus due to underlying condition with other specified complication (principal); M86.172 Other acute osteomyelitis, left ankle and foot; E08.42 Diabetes mellitus due to underlying condition with diabetic polyneuropathy; K21.9 Gastro-esophageal reflux disease without esophagitis; Z79.4 Long term (current) use of insulin; Z87.891 Personal history of nicotine dependence
CPT/HCPCS: 96365; J0696

== ENCOUNTER 2020-12-30 00:42 | Day surgery (SDC) | payer OTHER | END 2020-12-30 10:55 | disposition home or self-care (01) | LOC: ATC 00:42 | DX: E08.69 Diabetes mellitus due to underlying condition with other specified complication (principal); M86.172 Other acute osteomyelitis, left ankle and foot; E08.42 Diabetes mellitus due to underlying condition with diabetic polyneuropathy; K21.9 Gastro-esophageal reflux disease without esophagitis; Z79.4 Long term (current) use of insulin; Z87.891 Personal history of nicotine dependence | CPT/HCPCS: 96365; J0696 ==

== ENCOUNTER 2020-12-31 10:25 | Day surgery (SDC) | payer OTHER | END 2020-12-31 10:54 | disposition home or self-care (01) | LOC: ATC 10:25 | DX: E11.69 Type 2 diabetes mellitus with other specified complication (principal); M86.172 Other acute osteomyelitis, left ankle and foot; L02.612 Cutaneous abscess of left foot; K21.9 Gastro-esophageal reflux disease without esophagitis; Z87.891 Personal history of nicotine dependence; Z79.4 Long term (current) use of insulin | CPT/HCPCS: 96365; J0696 ==

== ENCOUNTER 2021-01-01 00:25 | Day surgery (SDC) | payer OTHER | END 2021-01-01 10:50 | disposition home or self-care (01) | LOC: ATC 00:25 | DX: E08.69 Diabetes mellitus due to underlying condition with other specified complication (principal); M86.172 Other acute osteomyelitis, left ankle and foot; E08.42 Diabetes mellitus due to underlying condition with diabetic polyneuropathy; Z79.4 Long term (current) use of insulin; Z87.891 Personal history of nicotine dependence | CPT/HCPCS: 96365; J0696 ==

== ENCOUNTER 2021-01-02 00:20 | Day surgery (SDC) | payer OTHER | END 2021-01-02 11:13 | disposition home or self-care (01) | LOC: ATC 00:20 | DX: E11.69 Type 2 diabetes mellitus with other specified complication (principal); M86.172 Other acute osteomyelitis, left ankle and foot; E11.42 Type 2 diabetes mellitus with diabetic polyneuropathy; K21.9 Gastro-esophageal reflux disease without esophagitis; Z87.891 Personal history of nicotine dependence; Z79.4 Long term (current) use of insulin; Z79.899 Other long term (current) drug therapy | CPT/HCPCS: 96365; J0696 ==

== ENCOUNTER 2021-01-03 00:42 | Day surgery (SDC) | payer OTHER | END 2021-01-03 10:40 | disposition home or self-care (01) | LOC: ATC 00:42 | DX: E11.69 Type 2 diabetes mellitus with other specified complication (principal); M86.172 Other acute osteomyelitis, left ankle and foot; E11.42 Type 2 diabetes mellitus with diabetic polyneuropathy; Z79.4 Long term (current) use of insulin; K21.9 Gastro-esophageal reflux disease without esophagitis; Z87.891 Personal history of nicotine dependence; Z79.899 Other long term (current) drug therapy | CPT/HCPCS: 96365; J0696 ==

== ENCOUNTER 2021-01-04 | Day surgery (SDC) | payer OTHER | END 2021-01-04 10:55 | disposition home or self-care (01) | LOC: ATC | DX: E08.69 Diabetes mellitus due to underlying condition with other specified complication (principal); M86.172 Other acute osteomyelitis, left ankle and foot; E08.42 Diabetes mellitus due to underlying condition with diabetic polyneuropathy; K21.9 Gastro-esophageal reflux disease without esophagitis; Z87.891 Personal history of nicotine dependence; Z79.4 Long term (current) use of insulin | CPT/HCPCS: 96365; J0696 ==

== ENCOUNTER 2021-01-05 00:03 | Day surgery (SDC) | payer OTHER | END 2021-01-05 10:37 | disposition home or self-care (01) | LOC: ATC 00:03 | DX: E08.69 Diabetes mellitus due to underlying condition with other specified complication (principal); M86.172 Other acute osteomyelitis, left ankle and foot; E08.42 Diabetes mellitus due to underlying condition with diabetic polyneuropathy; K21.9 Gastro-esophageal reflux disease without esophagitis; Z87.891 Personal history of nicotine dependence; Z79.4 Long term (current) use of insulin | CPT/HCPCS: 96365; J0696 ==

== ENCOUNTER 2021-01-06 00:38 | Day surgery (SDC) | payer OTHER | END 2021-01-06 09:04 | disposition home or self-care (01) | LOC: ATC 00:38 | DX: M86.172 Other acute osteomyelitis, left ankle and foot (principal); E08.42 Diabetes mellitus due to underlying condition with diabetic polyneuropathy; E08.69 Diabetes mellitus due to underlying condition with other specified complication; Z79.4 Long term (current) use of insulin; Z87.891 Personal history of nicotine dependence | CPT/HCPCS: 96365; J0696 ==

== ENCOUNTER 2021-01-07 00:23 | Day surgery (SDC) | payer OTHER | END 2021-01-07 10:40 | disposition home or self-care (01) | LOC: ATC 00:23 | DX: E11.69 Type 2 diabetes mellitus with other specified complication (principal); M86.172 Other acute osteomyelitis, left ankle and foot; E11.42 Type 2 diabetes mellitus with diabetic polyneuropathy; K21.9 Gastro-esophageal reflux disease without esophagitis; Z79.4 Long term (current) use of insulin; Z87.891 Personal history of nicotine dependence; Z79.899 Other long term (current) drug therapy | CPT/HCPCS: 96365; J0696 ==

== ENCOUNTER 2021-01-08 00:09 | Day surgery (SDC) | payer OTHER | END 2021-01-08 10:49 | disposition home or self-care (01) | LOC: ATC 00:09 | DX: E11.69 Type 2 diabetes mellitus with other specified complication (principal); M86.172 Other acute osteomyelitis, left ankle and foot; E11.42 Type 2 diabetes mellitus with diabetic polyneuropathy; K21.9 Gastro-esophageal reflux disease without esophagitis; Z87.891 Personal history of nicotine dependence; Z79.4 Long term (current) use of insulin | CPT/HCPCS: 96365; J0696 ==

== ENCOUNTER 2021-01-09 01:07 | Day surgery (SDC) | payer OTHER | END 2021-01-09 11:15 | disposition home or self-care (01) | LOC: ATC 01:07 | DX: M86.172 Other acute osteomyelitis, left ankle and foot (principal); E08.42 Diabetes mellitus due to underlying condition with diabetic polyneuropathy; K21.9 Gastro-esophageal reflux disease without esophagitis; Z87.891 Personal history of nicotine dependence; Z79.4 Long term (current) use of insulin | CPT/HCPCS: 96374; J0696 ==

== ENCOUNTER 2021-01-10 09:22 | Day surgery (SDC) | payer OTHER | END 2021-01-10 11:10 | disposition home or self-care (01) | LOC: ATC 09:22 | DX: M86.172 Other acute osteomyelitis, left ankle and foot (principal); E08.42 Diabetes mellitus due to underlying condition with diabetic polyneuropathy; K21.9 Gastro-esophageal reflux disease without esophagitis; Z79.4 Long term (current) use of insulin; Z87.891 Personal history of nicotine dependence | CPT/HCPCS: 96365; J0696 ==

== ENCOUNTER 2021-01-11 00:04 | Day surgery (SDC) | payer OTHER | END 2021-01-11 10:41 | disposition home or self-care (01) | LOC: ATC 00:04 | DX: M86.172 Other acute osteomyelitis, left ankle and foot (principal); E08.42 Diabetes mellitus due to underlying condition with diabetic polyneuropathy; K21.9 Gastro-esophageal reflux disease without esophagitis; Z79.4 Long term (current) use of insulin; Z87.891 Personal history of nicotine dependence | CPT/HCPCS: 96365; J0696 ==

== ENCOUNTER 2021-01-12 00:05 | Day surgery (SDC) | payer OTHER | END 2021-01-12 10:43 | disposition home or self-care (01) | LOC: ATC 00:05 | DX: E11.69 Type 2 diabetes mellitus with other specified complication (principal); M86.172 Other acute osteomyelitis, left ankle and foot; L02.612 Cutaneous abscess of left foot; E08.42 Diabetes mellitus due to underlying condition with diabetic polyneuropathy; Z79.4 Long term (current) use of insulin; Z87.891 Personal history of nicotine dependence | CPT/HCPCS: 96365; J0696 ==

== ENCOUNTER 2021-01-13 00:43 | Day surgery (SDC) | payer OTHER | END 2021-01-13 10:34 | disposition home or self-care (01) | LOC: ATC 00:43 | DX: E11.69 Type 2 diabetes mellitus with other specified complication (principal); M86.172 Other acute osteomyelitis, left ankle and foot; L02.612 Cutaneous abscess of left foot; E11.42 Type 2 diabetes mellitus with diabetic polyneuropathy; K21.9 Gastro-esophageal reflux disease without esophagitis; Z79.4 Long term (current) use of insulin; Z87.891 Personal history of nicotine dependence | CPT/HCPCS: 96365; J0696 ==

== ENCOUNTER 2021-01-14 00:32 | Day surgery (SDC) | payer OTHER | END 2021-01-14 10:54 | disposition home or self-care (01) | LOC: ATC 00:32 | DX: E11.69 Type 2 diabetes mellitus with other specified complication (principal); M86.172 Other acute osteomyelitis, left ankle and foot; E11.42 Type 2 diabetes mellitus with diabetic polyneuropathy; K21.9 Gastro-esophageal reflux disease without esophagitis; Z79.4 Long term (current) use of insulin; Z87.891 Personal history of nicotine dependence | CPT/HCPCS: 96365; J0696 ==

== ENCOUNTER 2021-01-15 03:10 | Day surgery (SDC) | payer OTHER | END 2021-01-15 10:46 | disposition home or self-care (01) | LOC: ATC 03:10 | DX: M86.172 Other acute osteomyelitis, left ankle and foot (principal); E08.42 Diabetes mellitus due to underlying condition with diabetic polyneuropathy; K21.9 Gastro-esophageal reflux disease without esophagitis; Z79.4 Long term (current) use of insulin; Z87.891 Personal history of nicotine dependence | CPT/HCPCS: 96365; J0696 ==

== ENCOUNTER 2021-01-16 00:20 | Day surgery (SDC) | payer OTHER | END 2021-01-16 11:04 | disposition home or self-care (01) | LOC: ATC 00:20 | DX: E11.69 Type 2 diabetes mellitus with other specified complication (principal); M86.172 Other acute osteomyelitis, left ankle and foot; E11.42 Type 2 diabetes mellitus with diabetic polyneuropathy; K21.9 Gastro-esophageal reflux disease without esophagitis; D69.6 Thrombocytopenia, unspecified; E11.621 Type 2 diabetes mellitus with foot ulcer; L97.509 Non-pressure chronic ulcer of other part of unspecified foot with unspecified severity; Z79.4 Long term (current) use of insulin | CPT/HCPCS: 96365; J0696 ==

== ENCOUNTER 2021-01-17 00:24 | Day surgery (SDC) | payer OTHER | END 2021-01-17 10:42 | disposition home or self-care (01) | LOC: ATC 00:24 | DX: E11.69 Type 2 diabetes mellitus with other specified complication (principal); M86.172 Other acute osteomyelitis, left ankle and foot; E11.42 Type 2 diabetes mellitus with diabetic polyneuropathy; K21.9 Gastro-esophageal reflux disease without esophagitis; Z87.891 Personal history of nicotine dependence; Z79.4 Long term (current) use of insulin | CPT/HCPCS: 96365; J0696 ==

== ENCOUNTER 2021-01-18 00:28 | Day surgery (SDC) | payer OTHER | END 2021-01-18 10:50 | disposition home or self-care (01) | LOC: ATC 00:28 | DX: M86.172 Other acute osteomyelitis, left ankle and foot (principal); E08.42 Diabetes mellitus due to underlying condition with diabetic polyneuropathy; K21.9 Gastro-esophageal reflux disease without esophagitis; Z79.4 Long term (current) use of insulin; Z87.891 Personal history of nicotine dependence | CPT/HCPCS: 96365; J0696 ==

== ENCOUNTER 2021-01-19 00:08 | Day surgery (SDC) | payer OTHER | END 2021-01-19 10:39 | disposition home or self-care (01) | LOC: ATC 00:08 | DX: E11.69 Type 2 diabetes mellitus with other specified complication (principal); M86.172 Other acute osteomyelitis, left ankle and foot; E11.42 Type 2 diabetes mellitus with diabetic polyneuropathy; K21.9 Gastro-esophageal reflux disease without esophagitis; Z87.891 Personal history of nicotine dependence; Z79.4 Long term (current) use of insulin | CPT/HCPCS: 96365; J0696 ==

== ENCOUNTER 2021-01-20 00:48 | Day surgery (SDC) | payer OTHER | END 2021-01-20 10:56 | disposition home or self-care (01) | LOC: ATC 00:48 | DX: E11.69 Type 2 diabetes mellitus with other specified complication (principal); M86.172 Other acute osteomyelitis, left ankle and foot; E11.42 Type 2 diabetes mellitus with diabetic polyneuropathy; L02.612 Cutaneous abscess of left foot; K21.9 Gastro-esophageal reflux disease without esophagitis; Z79.4 Long term (current) use of insulin; Z87.891 Personal history of nicotine dependence | CPT/HCPCS: 96365; J0696 ==

== ENCOUNTER 2021-01-21 10:23 | Day surgery (SDC) | payer OTHER | END 2021-01-21 10:56 | disposition home or self-care (01) | LOC: ATC 10:23 | DX: E11.69 Type 2 diabetes mellitus with other specified complication (principal); M86.172 Other acute osteomyelitis, left ankle and foot; E11.42 Type 2 diabetes mellitus with diabetic polyneuropathy; K21.9 Gastro-esophageal reflux disease without esophagitis; Z87.891 Personal history of nicotine dependence; Z79.4 Long term (current) use of insulin | CPT/HCPCS: 96365; J0696 ==

== ENCOUNTER 2021-01-22 10:20 | Day surgery (SDC) | payer OTHER | END 2021-01-22 10:50 | disposition home or self-care (01) | LOC: ATC 10:20 | DX: E11.69 Type 2 diabetes mellitus with other specified complication (principal); E11.42 Type 2 diabetes mellitus with diabetic polyneuropathy; M86.172 Other acute osteomyelitis, left ankle and foot; L02.612 Cutaneous abscess of left foot; Z79.4 Long term (current) use of insulin | CPT/HCPCS: 96365; J0696 ==

== ENCOUNTER 2021-01-23 00:29 | Day surgery (SDC) | payer OTHER | END 2021-01-23 11:05 | disposition home or self-care (01) | LOC: ATC 00:29 | DX: E11.69 Type 2 diabetes mellitus with other specified complication (principal); M86.172 Other acute osteomyelitis, left ankle and foot; L02.612 Cutaneous abscess of left foot; K21.9 Gastro-esophageal reflux disease without esophagitis; Z79.4 Long term (current) use of insulin; Z87.891 Personal history of nicotine dependence | CPT/HCPCS: 96365; J0696 ==

== ENCOUNTER 2021-01-24 00:37 | Day surgery (SDC) | payer OTHER | END 2021-01-24 10:55 | disposition home or self-care (01) | LOC: ATC 00:37 | DX: E11.69 Type 2 diabetes mellitus with other specified complication (principal); M86.172 Other acute osteomyelitis, left ankle and foot; E11.42 Type 2 diabetes mellitus with diabetic polyneuropathy; K21.9 Gastro-esophageal reflux disease without esophagitis; Z79.4 Long term (current) use of insulin; Z87.891 Personal history of nicotine dependence; Z79.899 Other long term (current) drug therapy | CPT/HCPCS: 96365; J0696 ==

== ENCOUNTER 2021-01-25 00:09 | Day surgery (SDC) | payer OTHER | END 2021-01-25 10:48 | disposition home or self-care (01) | LOC: ATC 00:09 | DX: E11.69 Type 2 diabetes mellitus with other specified complication (principal); M86.172 Other acute osteomyelitis, left ankle and foot; L97.426 Non-pressure chronic ulcer of left heel and midfoot with bone involvement without evidence of necrosis; L02.612 Cutaneous abscess of left foot; E11.42 Type 2 diabetes mellitus with diabetic polyneuropathy; K21.9 Gastro-esophageal reflux disease without esophagitis; Z79.4 Long term (current) use of insulin; Z87.891 Personal history of nicotine dependence | CPT/HCPCS: 96365; J0696 ==

== ENCOUNTER 2021-01-26 00:07 | Day surgery (SDC) | payer OTHER | END 2021-01-26 11:08 | disposition home or self-care (01) | LOC: ATC 00:07 | DX: E11.69 Type 2 diabetes mellitus with other specified complication (principal); M86.172 Other acute osteomyelitis, left ankle and foot; E11.42 Type 2 diabetes mellitus with diabetic polyneuropathy; K21.9 Gastro-esophageal reflux disease without esophagitis; Z87.891 Personal history of nicotine dependence; Z79.4 Long term (current) use of insulin; Z79.899 Other long term (current) drug therapy | CPT/HCPCS: 96365; J0696 ==

== ENCOUNTER 2021-01-27 01:08 | Day surgery (SDC) | payer OTHER | END 2021-01-27 11:07 | disposition home or self-care (01) | LOC: ATC 01:08 | DX: M86.172 Other acute osteomyelitis, left ankle and foot (principal); E08.42 Diabetes mellitus due to underlying condition with diabetic polyneuropathy; K21.9 Gastro-esophageal reflux disease without esophagitis; Z79.4 Long term (current) use of insulin; Z87.891 Personal history of nicotine dependence | CPT/HCPCS: 96365; J0696 ==

== ENCOUNTER 2021-02-21 00:12 | Day surgery (SDC) | payer OTHER | END 2021-02-21 23:03 | disposition home or self-care (01) | LOC: WOUND 00:12 | DX: E11.621 Type 2 diabetes mellitus with foot ulcer (principal); L97.522 Non-pressure chronic ulcer of other part of left foot with fat layer exposed; E11.40 Type 2 diabetes mellitus with diabetic neuropathy, unspecified; E11.69 Type 2 diabetes mellitus with other specified complication; M86.172 Other acute osteomyelitis, left ankle and foot; E11.51 Type 2 diabetes mellitus with diabetic peripheral angiopathy without gangrene; Z87.891 Personal history of nicotine dependence | CPT/HCPCS: G0463 ==

== ENCOUNTER 2021-02-28 00:28 | Day surgery (SDC) | payer OTHER | END 2021-02-28 23:30 | disposition home or self-care (01) | LOC: WOUND 00:28 | DX: E11.621 Type 2 diabetes mellitus with foot ulcer (principal); L97.522 Non-pressure chronic ulcer of other part of left foot with fat layer exposed; E11.40 Type 2 diabetes mellitus with diabetic neuropathy, unspecified | CPT/HCPCS: A9270 ==

== ENCOUNTER 2021-03-13 00:13 | Day surgery (SDC) | payer OTHER | END 2021-03-13 23:11 | disposition home or self-care (01) | LOC: WOUND 00:13 | DX: E11.621 Type 2 diabetes mellitus with foot ulcer (principal); L97.522 Non-pressure chronic ulcer of other part of left foot with fat layer exposed; E11.40 Type 2 diabetes mellitus with diabetic neuropathy, unspecified | CPT/HCPCS: A9270 ==

== ENCOUNTER 2021-03-20 00:15 | Day surgery (SDC) | payer OTHER | END 2021-03-20 22:55 | disposition home or self-care (01) | LOC: WOUND 00:15 | DX: E11.621 Type 2 diabetes mellitus with foot ulcer (principal); L97.522 Non-pressure chronic ulcer of other part of left foot with fat layer exposed; E11.40 Type 2 diabetes mellitus with diabetic neuropathy, unspecified | CPT/HCPCS: A9270 ==

== ENCOUNTER 2021-03-27 00:21 | Day surgery (SDC) | payer OTHER | END 2021-03-27 23:02 | disposition home or self-care (01) | LOC: WOUND 00:21 | DX: E11.621 Type 2 diabetes mellitus with foot ulcer (principal); L97.525 Non-pressure chronic ulcer of other part of left foot with muscle involvement without evidence of necrosis; E11.65 Type 2 diabetes mellitus with hyperglycemia; E11.40 Type 2 diabetes mellitus with diabetic neuropathy, unspecified; Z89.422 Acquired absence of other left toe(s) | CPT/HCPCS: A9270 ==

== ENCOUNTER 2021-04-05 04:34 | Day surgery (SDC) | payer OTHER | END 2021-04-05 22:59 | disposition home or self-care (01) | LOC: WOUND 04:34 | DX: E11.621 Type 2 diabetes mellitus with foot ulcer (principal); L97.525 Non-pressure chronic ulcer of other part of left foot with muscle involvement without evidence of necrosis; E11.65 Type 2 diabetes mellitus with hyperglycemia; E11.40 Type 2 diabetes mellitus with diabetic neuropathy, unspecified; Z89.422 Acquired absence of other left toe(s) | CPT/HCPCS: A9270 ==

== ENCOUNTER 2021-04-12 02:19 | Day surgery (SDC) | payer OTHER | END 2021-04-12 23:52 | disposition home or self-care (01) | LOC: WOUND 02:19 | DX: E11.621 Type 2 diabetes mellitus with foot ulcer (principal); L97.522 Non-pressure chronic ulcer of other part of left foot with fat layer exposed; E11.40 Type 2 diabetes mellitus with diabetic neuropathy, unspecified | CPT/HCPCS: A9270 ==

== ENCOUNTER 2021-04-14 04:25 | Day surgery (SDC) | payer OTHER | END 2021-04-15 00:37 | disposition home or self-care (01) | LOC: WOUND 04:25 | DX: E11.621 Type 2 diabetes mellitus with foot ulcer (principal); L97.522 Non-pressure chronic ulcer of other part of left foot with fat layer exposed; E11.40 Type 2 diabetes mellitus with diabetic neuropathy, unspecified | CPT/HCPCS: A9270 ==

== ENCOUNTER 2021-04-19 04:32 | Day surgery (SDC) | payer OTHER | END 2021-04-19 22:59 | disposition home or self-care (01) | LOC: WOUND 04:32 | DX: E11.621 Type 2 diabetes mellitus with foot ulcer (principal); L97.522 Non-pressure chronic ulcer of other part of left foot with fat layer exposed; E11.40 Type 2 diabetes mellitus with diabetic neuropathy, unspecified ==

== ENCOUNTER 2021-04-26 04:26 | Day surgery (SDC) | payer OTHER | END 2021-04-26 23:07 | disposition home or self-care (01) | LOC: WOUND 04:26 | DX: E11.621 Type 2 diabetes mellitus with foot ulcer (principal); L97.522 Non-pressure chronic ulcer of other part of left foot with fat layer exposed; E11.40 Type 2 diabetes mellitus with diabetic neuropathy, unspecified; E11.65 Type 2 diabetes mellitus with hyperglycemia; Z89.432 Acquired absence of left foot | CPT/HCPCS: A9270 ==

== ENCOUNTER 2021-05-03 02:52 | Day surgery (SDC) | payer OTHER ==
[2021-05-04] MEDS ORDERED: GLIMEPIRIDE2 M2 PO (11:56)
[2021-05-04] MEDS ORDERED: PREGABALIN100 MG PO (11:56)
== END 2021-05-03 23:39 | disposition home or self-care (01) ==
LOC: WOUND 02:52
DX: E11.621 Type 2 diabetes mellitus with foot ulcer (principal); L97.522 Non-pressure chronic ulcer of other part of left foot with fat layer exposed; E11.40 Type 2 diabetes mellitus with diabetic neuropathy, unspecified
CPT/HCPCS: A9270

== ENCOUNTER 2021-05-04 10:36 | Emergency (ER) | payer OTHER ==
[~2021-05-04] VITALS: Ht 175.3 cm; Wt 72.6 kg
[2021-05-04 11:13] LABS: BASOPHILS ABSOLUTE AUTO 0.06 K/mm3 (0.00-0.23); BASOPHILS PERCENT AUTO 0 % (0-2); EOSINOPHILS ABSOLUTE AUTO 0.02 K/mm3 (0.00-0.68); EOSINOPHILS PERCENT AUTO 0 % (0-6); Hematocrit 45.7 % (37.0-53.0); Hemoglobin 15.9 g/dL (13.5-17.5); IMMATURE GRAN ABSOLUTE AUTO 0.04 K/mm3 (0.00-0.10); IMMATURE GRAN PERCENT AUTO 0 % (0-1); LYMPHOCYTES ABSOLUTE AUTO 1.17 K/mm3 (0.84-5.20); LYMPHOCYTES PERCENT AUTO 8 % (21-46); MONOCYTES ABSOLUTE AUTO 0.42 K/mm3 (0.16-1.47); MONOCYTES PERCENT AUTO 3 % (4-13); Mean Corpuscular HGB 29.7 pg (26.0-34.0); Mean Corpuscular HGB Conc 34.8 g/dL (31.5-36.5); Mean Corpuscular Volume 85 fL (80-100); Mean Platelet Volume 11.1 fL (9.1-12.4); NEUTROPHILS ABSOLUTE AUTO 12.71 K/mm3 (1.96-9.15); NEUTROPHILS PERCENT AUTO 88 % (41-73); Platelet Count 169 K/mm3 (150-400); RDW Coefficient Variation 13.1 % (11.7-14.2); RDW Standard Deviation 40.4 fL (35.1-46.3); Red Blood Cell Count 5.36 M/mm3 (4.30-5.90); White Blood Cell Count 14.42 K/mm3 (4.00-11.30)
[2021-05-04 11:25] LABS: Alanine Aminotransfer (ALT/SGP 43 U/L (12-78); Albumin, Blood 4.9 g/dL (3.4-5.0); Albumin/Globulin Ratio 1.4 (0.8-1.8); Alk Phos 120 U/L (50-136); Anion Gap 13 mmol/L (6-16); Aspartate Aminotrans (AST/SGOT 24 U/L (12-37); Bilirubin, Total 1.1 mg/dL (0.1-1.0); Blood Urea Nitrogen 20 mg/dL (8-24); CO2, Blood 23 mmol/L (21-32); Calcium, Blood 10.1 mg/dL (8.5-10.1); Chloride, Blood 102 mmol/L (98-108); Creatinine, Blood 0.74 mg/dL (0.60-1.20); Globulin, Blood 3.6 g/dL (2.2-4.0); Glomerular Filtration Rate >60 (60-); Glucose, Blood 453 mg/dL (70-99); Potassium, Blood 4.1 mmol/L (3.5-5.5); Sodium, Blood 138 mmol/L (136-145); Total Protein, Blood 8.5 g/dL (6.4-8.2)
[2021-05-04] MEDS ORDERED: GLIMEPIRIDE2 M2 PO (11:56)
[2021-05-04] MEDS ORDERED: PREGABALIN100 MG PO (11:56)
== END 2021-05-04 14:51 | disposition home or self-care (01) ==
LOC: ER 10:36
PROVIDERS: Emergency Medicine
DX: R11.2 Nausea with vomiting, unspecified (principal); E11.9 Type 2 diabetes mellitus without complications; Z79.84 Long term (current) use of oral hypoglycemic drugs; Z87.891 Personal history of nicotine dependence
CPT/HCPCS: 36415; 80053; 83690; 85025; 96361; 96374; 96375; 99284-25; J1200; J1630; J1885; J2405; J2765; J7030

== ENCOUNTER 2021-05-10 01:04 | Day surgery (SDC) | payer OTHER ==
[~2021-05-10 01:04] MED LIST changes: +GLIMEPIRIDE2 M2 PO; +PREGABALIN100 MG PO
== END 2021-05-10 23:52 | disposition home or self-care (01) ==
LOC: WOUND 01:04
DX: E11.621 Type 2 diabetes mellitus with foot ulcer (principal); L97.521 Non-pressure chronic ulcer of other part of left foot limited to breakdown of skin; S91.001A Unspecified open wound, right ankle, initial encounter; X58.XXXA Exposure to other specified factors, initial encounter; E11.40 Type 2 diabetes mellitus with diabetic neuropathy, unspecified
CPT/HCPCS: A9270

== ENCOUNTER 2021-05-18 00:37 | Day surgery (SDC) | payer OTHER | END 2021-05-18 23:17 | disposition home or self-care (01) | LOC: WOUND 00:37 | DX: E11.622 Type 2 diabetes mellitus with other skin ulcer (principal); L97.312 Non-pressure chronic ulcer of right ankle with fat layer exposed; E11.621 Type 2 diabetes mellitus with foot ulcer; L97.522 Non-pressure chronic ulcer of other part of left foot with fat layer exposed; S91.001A Unspecified open wound, right ankle, initial encounter; X58.XXXA Exposure to other specified factors, initial encounter; E11.40 Type 2 diabetes mellitus with diabetic neuropathy, unspecified | CPT/HCPCS: A9270; G0463 ==

== ENCOUNTER 2021-06-01 02:11 | Day surgery (SDC) | payer OTHER | END 2021-06-01 22:43 | disposition home or self-care (01) | LOC: WOUND 02:11 | DX: E11.621 Type 2 diabetes mellitus with foot ulcer (principal); L97.522 Non-pressure chronic ulcer of other part of left foot with fat layer exposed; S91.001A Unspecified open wound, right ankle, initial encounter; X58.XXXA Exposure to other specified factors, initial encounter; E11.40 Type 2 diabetes mellitus with diabetic neuropathy, unspecified | CPT/HCPCS: G0463 ==

== ENCOUNTER 2021-06-15 08:00 | Day surgery (SDC) | payer OTHER | END 2021-06-15 23:59 | disposition home or self-care (01) | LOC: WOUND 08:00 | DX: E11.621 Type 2 diabetes mellitus with foot ulcer (principal); L97.512 Non-pressure chronic ulcer of other part of right foot with fat layer exposed; E11.40 Type 2 diabetes mellitus with diabetic neuropathy, unspecified ==

== ENCOUNTER 2021-06-29 02:00 | Day surgery (SDC) | payer OTHER | END 2021-06-29 23:34 | disposition home or self-care (01) | LOC: WOUND 02:00 | DX: E11.621 Type 2 diabetes mellitus with foot ulcer (principal); L97.518 Non-pressure chronic ulcer of other part of right foot with other specified severity; E11.40 Type 2 diabetes mellitus with diabetic neuropathy, unspecified | CPT/HCPCS: G0463 ==

== ENCOUNTER → 2023-08-22 | Outpatient (CLI) | payer OTHER ==
[~2023-08-22] MED LIST changes: +Almacone Liqui355 ML PO; +ONDA4ODT MM; +PROMETHAZINE12.5 M1 PO
[2023-08-22 14:03] LABS: Microalb/Creat Ratio UR, Rand 930.818 mg/g (0.000-30.000)
== END | disposition home or self-care (01) ==
LOC: LAB SHORT 12:27 → LAB 12:27
PROVIDERS: Nurse Practitioner Family
DX: E11.21 Type 2 diabetes mellitus with diabetic nephropathy (principal); E11.40 Type 2 diabetes mellitus with diabetic neuropathy, unspecified; E11.22 Type 2 diabetes mellitus with diabetic chronic kidney disease; N18.9 Chronic kidney disease, unspecified; Z86.31 Personal history of diabetic foot ulcer; Z13.220 Encounter for screening for lipoid disorders; Z13.31 Encounter for screening for depression; E55.9 Vitamin D deficiency, unspecified
CPT/HCPCS: 80053; 80061; 82043; 82306; 82570; 84443; 85025

== ENCOUNTER → 2024-07-24 | Outpatient (CLI) | payer OTHER ==
[2024-07-24 14:22] LABS: BASOPHILS ABSOLUTE AUTO 0.03 K/mm3 (0.00-0.23); BASOPHILS PERCENT AUTO 1 % (0-2); EOSINOPHILS ABSOLUTE AUTO 0.14 K/mm3 (0.00-0.68); EOSINOPHILS PERCENT AUTO 3 % (0-6); Hematocrit 40.7 % (37.0-53.0); Hemoglobin 14.1 g/dL (13.5-17.5); IMMATURE GRAN ABSOLUTE AUTO 0.01 K/mm3 (0.00-0.10); IMMATURE GRAN PERCENT AUTO 0 % (0-1); LYMPHOCYTES ABSOLUTE AUTO 2.21 K/mm3 (0.84-5.20); LYMPHOCYTES PERCENT AUTO 42 % (21-46); MONOCYTES ABSOLUTE AUTO 0.27 K/mm3 (0.16-1.47); MONOCYTES PERCENT AUTO 5 % (4-13); Mean Corpuscular HGB 30.5 pg (26.0-34.0); Mean Corpuscular HGB Conc 34.6 g/dL (31.5-36.5); Mean Corpuscular Volume 88 fL (80-100); Mean Platelet Volume 12.1 fL (9.1-12.4); NEUTROPHILS ABSOLUTE AUTO 2.63 K/mm3 (1.96-9.15); NEUTROPHILS PERCENT AUTO 50 % (41-73); Platelet Count 160 K/mm3 (150-400); RDW Coefficient Variation 13.2 % (11.7-14.2); RDW Standard Deviation 42.1 fL (35.1-46.3); Red Blood Cell Count 4.62 M/mm3 (4.30-5.90); White Blood Cell Count 5.29 K/mm3 (4.00-11.30)
[2024-07-24 18:05] LABS: Microalb/Creat Ratio UR, Rand 1253.73 mg/g (0.000-30.000)
[2024-07-24 18:35] LABS: Albumin, Blood 3.8 g/dL (3.4-5.0); Albumin/Globulin Ratio 1.2 (0.8-1.8); Bun/Creatinine Ratio 22.6 (12.0-20.0); Calcium, Blood 9.4 mg/dL (8.5-10.1); Creatinine, Blood 0.93 mg/dL (0.60-1.20); Globulin, Blood 3.2 g/dL (2.2-4.0); Potassium, Blood 4.6 mmol/L (3.5-5.5)
[2024-07-24 18:36] LABS: Bilirubin, Total 0.8 mg/dL (0.1-1.0); Thyroid Stimulating Hormone 1.19 uIU/mL (0.360-4.800)
== END ==
LOC: LAB SHORT 12:42 → LAB 12:42
PROVIDERS: Nurse Practitioner Family
DX: Z13.31 Encounter for screening for depression (principal); E11.65 Type 2 diabetes mellitus with hyperglycemia; E55.9 Vitamin D deficiency, unspecified
CPT/HCPCS: 80053; 82043; 82306; 82570; 84443; 85025

== ENCOUNTER → 2025-03-11 | Outpatient (CLI) | payer OTHER | LOC: LAB SHORT 12:30 → LAB 12:30 | DX: Z11.4 Encounter for screening for human immunodeficiency virus [HIV] (principal); Z13.31 Encounter for screening for depression; E11.65 Type 2 diabetes mellitus with hyperglycemia; E55.9 Vitamin D deficiency, unspecified; E78.5 Hyperlipidemia, unspecified ==